=== PATIENT | male | born 2000 | race Caucasian/White ===

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

== ENCOUNTER 2023-07-03 18:13 | Emergency (ER) | payer OTHER, MEDICAID, SELFPAY ==
[2023-07-03 18:14] VITALS: PULSE 59
[2023-07-03 18:15] VITALS: BP 123/89; PULSE 50; RESP 16; TEMP 36.9; O2SAT 100; BMI 22.4
--- NOTE | 2023-07-03 18:39 | CT_ITS ---
INDICATION: LLQ pain -- IV EXAMINATION: CT ABDOMEN AND PELVIS with CONTRAST - CT Abdomen And Pelvis W/ Contrast Injection TECHNIQUE: Multiple axial images were obtained of the abdomen and pelvis following administration of IV contrast. Planar reconstructions obtained. A radiation dose optimization technique was used for this scan. RADIATION DOSAGE (If Supplied By Facility): CTDIvol = ( 9.01 ) mGy, DLP = ( 395.70 ) mGycm IV Contrast dosage and agent: 100 mL Isovue 300 Oral contrast: Oral contrast is present COMPARISON: No pertinent previous studies for comparison.. FINDINGS: LOWER THORAX: Lungs are clear. Cardiac contour is normal, no pericardial effusion. No coronary vascular calcifications noted. HEPATOBILIARY: Liver: The liver is homogeneous and shows no evidence of focal lesion. Gallbladder: The gallbladder is unremarkable. No ductal dilatation. Pancreas: Pancreas is normal size configuration and density. No mass is noted. Spleen: The spleen is homogeneous and normal in size. . Small splenule is present. BOWEL: Stomach: The stomach is normal in size configuration, no evidence of focal masses, abnormal calcifications. No hiatal hernia noted. Bowel: Small and large have normal configuration, no masses or bowel obstruction noted. Mild diverticulosis without evidence of diverticulitis. Appendix: The visualized appendix has normal appearance.: GENITOURINARY: Adrenals: Both adrenal glands are normal in size. Kidneys: Kidneys appear symmetric in size. No calcifications are seen in the collecting system. There is no hydronephrosis or surrounding fluid. Bladder: Normal Pelvic organs: The visualized pelvic organs are normal in size and configuration. No masses or adenopathy noted. RETROPERITONEUM: There is normal appearance of the abdominal aorta and inferior vena cava. LYMPH NODES: No evidence of retroperitoneal or para-aortic masses fluid collections or adenopathy. PERITONEAL CAVITY: No ascites noted ANTERIOR ABDOMINAL WALL: Normal, no hernia identified. BONES AND SOFT TISSUES: The skeleton shows no evidence for fractures or destructive lesions. OTHER: None CT/Abdomen/Pelvis WITH Contrast IMPRESSION: 1. No masses bowel obstruction abscess free fluid or free air. Diverticulosis without evidence diverticulitis. 2. No evidence of appendicitis. 3. No evidence of renal calcifications or obstructive uropathy. 4. No evidence of cholelithiasis. Electronically Signed: Carlos Oliva MD at 21:19 EDT ,
--- NOTE | 2023-07-03 18:40 | EDS_ITS ---
HPI History of Present Illness Chief Complaint: Abd Pain Informant: patient Onset/Context/Timing Onset: Today Context: Gradual Onset Timing: Waxes and wanes Current Severity: Mild Maximum Severity: Moderate Narrative Narrative: Patient presents with left lower quadrant abdominal pain. He reports a history of diverticulitis, first diagnosed last fall. He states his pain feels similar. This particular episode started this morning and has been waxing and waning throughout the day. No nausea or vomiting. No diarrhea. No urinary symptoms. [facility] Medical History (Updated 07/03/23 @ 21:[address] Brooklynn Ortega MD) Diverticulitis Home Medications No Known/Unobtainable [No Known Home Medications] 07/26/15 [History Last Taken Unknown] Allergy/AdvReac Type Severity Reaction Status Date / Time No Known Allergies Allergy Verified 07/03/23 18:16 Surgical History H/O wrist surgery History of brain surgery Social History Smoking Status: Never smoker ROS ROS ED Constitutional Constitutional ED: Denies chills or fever(s) Eyes Eyes: Denies change in vision ENT ENT ED: Denies rhinorrhea or sore throat Cardiovascular Cardiovascular: Denies chest pain or palpitations Respiratory/Chest Respiratory/Chest: Denies cough or dyspnea Gastrointestinal Gastrointestinal: Reports abdominal pain; Denies diarrhea, nausea or vomiting Genitourinary Genitourinary ED: Denies dysuria Musculoskeletal Musculoskeletal: Denies back pain or extremity pain Integumentary Denies Abrasions or rash Neurologic Neurologic: Denies headache(s) or weakness Psychiatric Psychiatric: Denies anxiety or depression Allergic/Immunologic Allergic/Immunologic ED: Denies lip swelling or urticaria EXAM Physical Exam Const Vital Signs: 07/03/23 18:15 07/03/23 18:14 07/03/23 20:14 Temperature 98.4 F Temperature Source Temporal Pulse Rate 50 L 59 L 78 Respiratory Rate 16 14 Blood Pressure 123/89 H 136/74 H Blood Pressure Mean 100 94 Pulse Ox 100 98 Oxygen Delivery Method Room Air Room Air Positive well nourished and well developed General Appearance ED: well developed HEENT Reports moist mucous membranes Eyes PERRL and EOMs intact bilaterally Neck no lymphadenopathy Chest Wall inspection of chest normal and palpation of chest normal Resp normal respiratory effort and clear to auscultation bilaterally Cardio regular rate and regular rhythm GI GI Narrative: Abdomen soft with mild tenderness in the left lower quadrant. Hypoactive but present bowel sounds. Extremity normal to inspection Neuro oriented x3 and no sensory deficits noted Motor Exam: strength 5/5 throughout Psych mental status grossly normal Skin no rashes or lesions noted MDM MDM MDM Narrative Medical decision making narrative: Patient given Toradol and IV fluids. Labwork obtained to evaluate for leukocytosis, anemia, and electrolyte derangement. Urinalysis obtained to evaluate for infection/hematuria. CT scan with p.o. and IV contrast obtained to evaluate for diverticulitis, perforation, abscess. Lab Data Attestation: I reviewed the patient's lab results. Labs: Laboratory Results - last 24 hr 07/03/23 07/03/23 18:55 19:00 WBC 8.0 RBC 5.20 Hgb 15.7 Hct 45.2 MCV 86.9 MCH 30.2 MCHC 34.7 RDW Std Deviation 38.7 RDW Coeff of Kira 12.2 Plt Count 238 MPV 11.4 Immature Gran % (Auto) 0.100 Neut % (Auto) 55.7 Lymph % (Auto) 33.9 [place] % (Auto) 8.6 Eos % (Auto) 1.2 Baso % (Auto) 0.5 Absolute Neuts (auto) 4.5 Absolute Lymphs (auto) 2.72 Nucleated RBC % 0 Sodium 140 Potassium 3.7 Chloride 106 Carbon Dioxide 30.0 Anion Gap 4 L BUN 12 Creatinine 1.06 Estim Creat Clear Calc 110.33 Est GFR (MDRD) Af Amer 113 Est GFR (MDRD) Non-Af 93 BUN/Creatinine Ratio 11.3 Glucose 77 Calcium 9.0 Urine Color Yellow Urine Clarity Clear Urine pH 6.0 Ur Specific [place] 1.015 Urine Protein Negative Urine Glucose (UA) Normal Urine Ketones Negative Urine Occult Blood Negative Urine Nitrite Negative Urine Bilirubin Negative Urine Urobilinogen Normal Ur Leukocyte Esterase 25 H Urine RBC 0 SEEN Urine WBC 0-5 SEEN Ur Squamous Epith Cells 0 SEEN Urine Bacteria 0 SEEN Urine Mucus RARE Radiography Diagnostic Testing: Clinical Impression(s) from Imaging Studies Abdomen/Pelvis CT 07/03/23 18:39 IMPRESSION: 1. No masses bowel obstruction abscess free fluid or free air. Diverticulosis without evidence diverticulitis. 2. No evidence of appendicitis. 3. No evidence of renal calcifications or obstructive uropathy. 4. No evidence of cholelithiasis. Electronically Signed: Carlos Oliva MD at 21:19 EDT , Treatment and Re-Evaluation :: CBC was normal white count at 8 with no left shift. Hemoglobin normal at 15.7. Chemistry studies are unremarkable. Urinalysis reveals no sign of infection. CT scan of the abdomen pelvis reveals evidence of diverticula without evidence of diverticulitis. There is no bowel obstruction, abscess, free air, or free fluid. Test results discussed with patient. He will continue supportive care. He was advised if he develops worsened pain and/or fever he needs to be reevaluated. He is comfortable with this plan. Discharge Plan Triage Chief Complaint: Abd Pain ED Provider: Brooklynn Ortega Dx/Rx/DC Orders Clinical Impression: Diverticulosis, Abdominal pain Instructions: ED Abdominal Pain Unkn Cause Male..., ED Diverticulosis Prescriptions: No Action No Known Home Medications Primary Care Provider: Care Physician,No Primary Referrals: Rm Bear DO [Med Staff - [employer]] - 1-2 Weeks Care Physician,No Primary [Primary Care Provider] - Disposition Disposition: Home, Self Care
[2023-07-03] MEDS: Ketorolac 30 MG/ML Syringe IV (18:54)
[2023-07-03 19:06] LABS: Bacteria 0 SEEN /hpf (None Seen); Red Blood Cells-Urine 0 SEEN /hpf (0-5); Squamous Epithelial Cells - UA 0 SEEN /hpf (0-5)
[2023-07-03 19:08] LABS: Absolute Lymphocyte Count 2.72 X10^3/uL (0.83-4.51); Absolute Neutrophil Count 4.5 X10^3/uL (2.0-7.7); Basophil# 0.04 X10^3/uL; Basophil% 0.5 % (0-1); Eosinophils% 1.2 % (0-5); Hematocrit 45.2 % (40-54); Hemoglobin 15.7 g/dL (13.0-16.5); Lymphocyte # 2.72 X10^3/ul (0.83-4.51); Lymphocyte % 33.9 % (19-41); Mean Corp Hgb Conc 34.7 g/dL (32-36); Mean Corpuscular Hgb 30.2 pg (27.0-32.0); Mean Corpuscular Volume 86.9 fL (80-94); Mean Platelet Vol. 11.4 fl (6.2-12.0); Monocyte# 0.69 X10^3/uL; Monocyte% 8.6 % (0-10); NRBC Flagged by Analyzer 0 % (0-5); Neutrophil # 4.46 X10^3/uL (2.7-7.7); Neutrophil % 55.7 % (47-70); Platelet Count 238 K/mm3 (150-450); RBC Distribution Width CV 12.2 % (11.6-14.6); RBC Distribution Width SD 38.7 fl (35.1-43.9)
[2023-07-03 19:09] LABS: Color, Urine Yellow (Yellow); Glucose, Dipstick Normal (Normal); Ketone-Dipstick Negative (Negative); Leukocyte Esterase-Dipstick 25 /ul (Negative); Nitrite-Dipstick Negative (Negative); Occult Blood-Urine Negative /ul (Negative); Protein-Dipstick Negative (Negative); Specific Gravity, Urine 1.015 (1.002-1.030); Urine Bilirubin Dipstick Negative (Negative); Urine Clarity Clear (Clear); Urine Urobilinogen Normal (Normal)
[2023-07-03 19:14] LABS: Mucous, Urine RARE /hpf (<or=2+); White Blood Cells 0-5 SEEN /hpf (0-5)
[2023-07-03 19:21] LABS: Anion Gap 4 (5-15); BUN 12 mg/dL (7-18); BUN/Creat Ratio 11.3 RATIO (10-20); Chloride 106 mmol/L (98-107); Creatinine, Serum 1.06 mg/dL (0.70-1.30); EST Glomerular Filtration Rate 93 mL/min (>60); Est Glom Filt Rate - Afr Amer 113 mL/min (>60); Estimated Creatinine Clearance 110.33 ml/min; Glucose 77 mg/dL (74-106); Potassium 3.7 mmol/L (3.5-5.1); Sodium Level 140 mmol/L (136-145)
[2023-07-03 20:14] VITALS: BP 136/74; PULSE 78; RESP 14; O2SAT 98
[2023-07-03 21:49] VITALS: BP 121/74; PULSE 69; RESP 14; O2SAT 100
== END 2023-07-03 21:53 | disposition home or self-care (01) ==
PROVIDERS: Emergency Provider Emergency Medicine; Visit Provider Emergency Medicine
DX: K57.90 Diverticulosis of intestine, part unspecified, without perforation or abscess without bleeding (principal); Z87.19 Personal history of other diseases of the digestive system
CPT/HCPCS: 74177; 80048; 81001; 85025; 96374; 99283; Q9967; A4216